=== PATIENT | male | born 1965 | race Caucasian/White ===

== ENCOUNTER → 2017-02-02 | Outpatient (CLI) | payer BC | LOC: RAD 09:30 | PROVIDERS: ATTEND Urology | DX: R35.1 Nocturia (principal); R35.0 Frequency of micturition; R31.29 Other microscopic hematuria | CPT/HCPCS: 74178; 82565 ==

== ENCOUNTER 2017-07-12 16:33 | Emergency (ER) | payer BC ==
[2017-07-12 16:51] VITALS: BP 147/93
--- NOTE | 2017-07-12 18:02 | ER Document Report ---
HPI - HPI Pain Level: 5 Notes: Patient is a 52-year-old male who presents the ED with 2 leg lacerations on his left side status post injury on a steel ladder prior to arrival. Patient states that his tetanus was most likely over 5 years ago. Patient states that he still ambulatory and is still able to feel his feet and toes without any difficulties. Patient states that the wound has been bleeding and is been keeping it covered. Denies any past medical history. Denies any MRSA history. Denies any headache, fever, chest pain, palpitations, syncope, cough, shortness of breath, wheeze, dyspnea, abdominal pain, nausea/vomiting/diarrhea, numbness/tingling,muscle paralysis/weakness, or rash. Denies any drug allergies. - ROS Notes: REVIEW OF SYSTEMS: CONSTITUTIONAL : Denies fever, chills, or sweats. Denies recent illness. EENT: Denies eye, ear, throat, or mouth pain or symptoms. Denies nasal or sinus congestion or discharge. Denies throat, tongue, or mouth swelling or difficulty swallowing. CARDIOVASCULAR: Denies chest pain. Denies palpitations or racing or irregular heart beat. Denies ankle edema. RESPIRATORY: Denies cough, cold, or chest congestion. Denies shortness of breath, difficulty breathing, or wheezing. GASTROINTESTINAL: Denies abdominal pain or distention. Denies nausea, vomiting , or diarrhea. Denies blood in vomitus, stools, or per rectum. Denies black, tarry stools. Denies constipation. GENITOURINARY: Denies difficulty urinating, painful urination, burning, frequency, blood in urine, or discharge. MUSCULOSKELETAL: see hpi SKIN: see hpi NEUROLOGICAL: Denies confusion or altered mental status. Denies passing out or loss of consciousness. Denies dizziness or lightheadedness. Denies headache. Denies weakness or paralysis or loss of use of either side. Denies problems with gait or speech. Denies sensory loss, numbness, or tingling. ALL OTHER SYSTEMS REVIEWED AND NEGATIVE. Dictation was performed using [employer] voice recognition software - DERM Skin Color: Normal Past Medical History - Social History Smoking Status: Unknown if Ever Smoked Family History: Reviewed & Not Pertinent Renal/ Medical History: Denies: Hx Peritoneal Dialysis Vertical Provider Document - CONSTITUTIONAL Agree With Documented VS: Yes Notes: PHYSICAL EXAMINATION: GENERAL: Well-appearing, well-nourished and in no acute distress. LUNGS: Breath sounds clear to auscultation bilaterally and equal. No wheezes rales or rhonchi. HEART: Regular rate and rhythm without murmurs, rubs, gallops. Musculoskeletal: LE: FROM to passive/active. Strength 5+/5. N/V intact distal. No rupture. Extremities: No cyanosis, clubbing, or edema b/l. Peripheral pulses 2+. Capillary refill less than 3 seconds. NEUROLOGICAL: Cranial nerves grossly intact. Normal speech, normal gait. Normal sensory, motor exams PSYCH: Normal mood, normal affect. SKIN: 4cm ([id number]) Wedge lac to the left lateral proximal leg noted. Superficial 3cm linear lac noted to the left lateral leg. - INFECTION CONTROL TRAVEL OUTSIDE OF THE [place] IN LAST 30 DAYS: No - RESPIRATORY O2 Sat by Pulse Oximetry: 93 Course - Re-evaluation Re-evalutation: 07/12/17 19:32 Patient is an afebrile, well-hydrated, 52-year-old male who presents the ED with two leg lacerations s/p injury. Vitals are stable. PE otherwise unremarkable at this time. Wound edges to the wedge lac were approximated appropriately utilizing 1 deep layer vicryl, 3 vertical mattress sutures, and 2 simple interrupted sutures. Wound edges to the linear lac were approximated appropriately utilizing 3 vertical mattress and 1 simple suture. No complications and minimal blood loss. Wound instructions reviewed. Wound dressing was placed. Crutches provided. Low suspicion for any neurovascular compromise, tendon rupture, compartment syndrome, sepsis, or other emergent systemic condition at this time. Patient is aware that his condition can change from initial presentation and he needs to monitor symptoms closely and seek medical attention if any acute changes. Tdap given today. I will send him home with a prophylactic antibiotic of Keflex to take as directed. Recheck with your PCM in 2-3 days. Return to the ED with any worsening/concerning symptoms otherwise as reviewed in discharge. Sutures will need removed in 10- 14 days. Patient is in agreement. - Vital Signs Vital signs: Temp Pulse Resp BP Pulse Ox 98.8 F 88 20 147/93 H 93 07/12/17 16:48 07/12/17 16:48 07/12/17 16:48 07/12/17 16:48 07/12/17 16:48 Procedures - Laceration/Wound Repair Left Leg Time completed: 19:25 Wound length (cm): 7 - see note for specifics Wound's Depth, Shape: Superficial - to the linear lac, Into muscle - with the wedge, minimally, Linear, Flap Laceration pre-procedure: Sterile PPE donned, Sterile drapes applied, Shur- Clens applied Anesthetic type: 2% Lidocaine - with epi Volume Anesthetic (mLs): 15 Wound explored: Clean, No foreign body removed Irrigated w/ Saline (mLs): 60 Wound Debrided: Moderate Wound Repaired With: Sutures Suture Size/Type: 4:0, Nylon Number of Sutures: 9 Layer Closure?: Yes Deep Layer Suture Size/Type: 4:0, Other - vicryl Number Deep Layer Sutures: 1 Post-procedure wound care: Sterile dressing applied Post-procedure NV exam normal: Yes Complications: No Discharge - Discharge Clinical Impression: Laceration of leg not thigh, right Qualifiers: Encounter type: initial encounter Qualified Code(s): S81.811A - Laceration without foreign body, right lower leg, initial encounter Condition: Stable Disposition: HOME, SELF-CARE Instructions: Antibiotic Ointment Protection ([facility]), Laceration Care ([facility]), Prophylactic Antibiotic ([facility]), Soap Cleansing ([facility]), Tetanus Immunization Given ([facility]) Additional Instructions: Do not shower or bathe for 24 hours. After 24 hours you may shower but no submersion of the wound under water. Keep the original dressing on the wound for 24 hours unless the drainage soaks through. Change the dressing daily thereafter and keep the knots of the suture material clean from any dried discharge. You may leave the wound open to the air once there is no more discharge. Return to the ED and/or your PCM in 2-3 days for a recheck. Monitor for any signs of worsening pain or redness, purulent drainage, streaks, and/or fever. Return to the ED if noticing any of the above symptoms or as needed. Take medications as directed. Your sutures will need to be removed in 10-14 days. Prescriptions: Cephalexin Monohydrate [Keflex 500 mg Capsule] 500 mg PO BID #14 capsule Forms: Elevated Blood Pressure Referrals: [facility] [Provider Group] - Follow up as needed [facility] [Provider Group] - Follow up as needed [facility] [Provider Group] - Follow up as needed [facility], [facility] [Other] - Follow up in 3-5 days
[2017-07-12] MEDS ORDERED: LIDOCAINE 1%/EPINEPHRINE INJ 20 ML VIAL INJ ONE (18:13)
[2017-07-12] MEDS ORDERED: LIDOCAINE 1.5%/EPINEPHRINE INJ-PF 30 ML SDV INJ ONE (18:19)
[2017-07-12] MEDS ORDERED: LIDOCAINE 2%/EPINEPHRINE INJ 20 ML VIAL INJ ONE (18:25)
--- NOTE | 2017-07-12 18:28 | RADIOLOGY REPORT (SQ) ---
EXAM DESCRIPTION: KNEE LEFT 3 VIEWS COMPLETED DATE/TIME: 07/12/2017 6:06 pm REASON FOR STUDY: Pain s/p injury COMPARISON: None. NUMBER OF VIEWS: Three views. TECHNIQUE: AP, lateral, and sunrise patella radiographic images acquired of the left knee. LIMITATIONS: None. FINDINGS: MINERALIZATION: Normal. BONES: No acute fracture or dislocation. No worrisome bone lesions. JOINT: No effusion. SOFT TISSUES: No soft tissue swelling. No radio-opaque foreign body. OTHER: No other significant finding. IMPRESSION: NEGATIVE STUDY OF THE LEFT KNEE. NO RADIOGRAPHIC EVIDENCE OF ACUTE INJURY. TECHNICAL DOCUMENTATION: JOB ID: [id number] [employer]- All Rights Reserved
[2017-07-12] MEDS ORDERED: DIPH/PERTUSS(ACELL)/TETANUS VAC/PF 0.5 ML SYR (>=10YO) IM ONE (18:33)
== END 2017-07-12 20:03 | disposition home or self-care (01) ==
LOC: ER 16:33
DX: S86.922A Laceration of unspecified muscle(s) and tendon(s) at lower leg level, left leg, initial encounter (principal); S81.812A Laceration without foreign body, left lower leg, initial encounter; W11.XXXA Fall on and from ladder, initial encounter
CPT/HCPCS: 99283; 73562; 12032; J3490